=== PATIENT | female | born 1955 | race Caucasian/White ===

== ENCOUNTER 2024-08-24 00:48 | Emergency (ER) | payer MEDICARE ==
[2024-08-24] MEDS ORDERED: traMADol HCl 50 MG TAB ONE (01:49)
[2024-08-24] MEDS ORDERED: Dexamethasone 10 MG/ML VIAL ONE (01:49)
== END 2024-08-24 02:15 | disposition home or self-care (01) ==
LOC: CSHERS 00:48
DX: M94.0 Chondrocostal junction syndrome [Tietze] (principal)
CPT/HCPCS: 71046; 96372; J1100

== ENCOUNTER 2024-08-29 14:28 | Emergency (ER) | payer MEDICARE ==
[2024-08-29] MEDS ORDERED: predniSONE 20 MG TAB ONE (15:12)
[2024-08-29] MEDS ORDERED: Ipratropium/Albuterol 3 ML NEB ONE (15:14)
== END 2024-08-29 16:08 | disposition home or self-care (01) ==
LOC: CSHERS 14:28
DX: J45.901 Unspecified asthma with (acute) exacerbation (principal)
CPT/HCPCS: 93005; 94640; 99284; J7512; J7620